=== PATIENT | female | born 1980 | race Caucasian/White ===

== ENCOUNTER 2019-01-26 11:25 | Outpatient (REF) | payer BC, SELFPAY ==
[2019-01-26 18:39] LABS: HCT 42.2 % (36.0-46.0); HGB 14.3 g/dL (12.0-15.5); Mean Corp. HGB Concentration 33.9 g/dL (32.0-36.0); Mean Corpuscular Hemoglobin 29.7 pg (27.0-33.0); Mean Corpuscular Volume 87.7 fL (80-95); Mean Platelet Volume 10.7 fL (8.0-11.0); Platelet Count 254 x1000/uL (130-400); RBC 4.81 m/cumm (4.00-5.20); RBC Distribution Width 13.2 % (11.7-14.6); White Blood Cell Count 12.94 k/cumm (4.4-10.8)
[2019-01-26 19:07] LABS: Anion Gap 10.1 mmol/L (3-11); BUN 11 mg/dL (7-18); CO2 24.9 mmol/L (21.0-32.0); CREATININE 0.59 mg/dL (0.55-1.02); Chloride 106 mmol/L (98-107); Glucose 92 mg/dL (70-100); Potassium 4.3 mmol/L (3.5-5.1); Sodium 141 mmol/L (136-145); TSH (W/Ref FT4) 3.25 uIU/mL (0.36-3.74)
[2019-01-26 19:22] LABS: Hemoglobin A1C 6.1 % (4.5-6.2)
== END 2019-01-26 11:45 ==
LOC: NCHCN 11:25
PROVIDERS: PCP Family Medicine; Visit Provider Family Medicine
DX: R53.83 Other fatigue (principal); E66.9 Obesity, unspecified
CPT/HCPCS: 80048; 85027; 83036; 84443

== ENCOUNTER 2020-03-04 10:00 | Outpatient (REF) | payer BC, SELFPAY ==
--- NOTE | 2020-03-04 08:45 | PAPFT_PTH ---
PATIENT: Henna Vallecillo LOC: [facility] U#:[id number] AGE/SX: 39/F ROOM: RE03/04/[address]: Kori Briceno NP : 1980 BED: DIS: 03/04/2020 SPEC #: [id number] RECD: 03/04/20 12:56 STATUS: BESSY REQ #: [id number] SHOAIB: 03/04/20 08:[address]: Kori Briceno NP DEPT: [facility] Cytology RECD BY: Sachi Brown ENTERED: 03/04/20 12:57 SP TYPE: PAPFT OTHR DR: Maria E Burns Tissues: 1 - CX/ENDOCX FOR PAP SMEARS Procedures: PAP THIN PREP/UVM Screening Comments: [phone] ([facility])
== END 2020-03-04 10:20 ==
LOC: LBN 10:00
PROVIDERS: PCP Family Medicine; Visit Provider Nurse Practitioner Women's Health
DX: Z12.4 Encounter for screening for malignant neoplasm of cervix (principal)
CPT/HCPCS: 88142

== ENCOUNTER 2021-01-29 13:04 | Outpatient (REF) | payer BC, SELFPAY ==
[2021-01-31 11:57] LABS: COVID-19 RT-PCR UVMMC Result Negative (Negative)
== END 2021-01-29 13:05 | disposition home or self-care (01) ==
LOC: LBN 13:04
PROVIDERS: PCP Family Medicine; Visit Provider Family Medicine
DX: Z20.822 Contact with and (suspected) exposure to COVID-19 (principal); J06.9 Acute upper respiratory infection, unspecified
CPT/HCPCS: U0003

== ENCOUNTER 2021-02-27 15:23 | Outpatient (REF) | payer BC, SELFPAY ==
[2021-02-27 21:30] LABS: Hemoglobin A1C 6.9 % (<5.7)
[2021-03-02 09:25] LABS: Hepatitis C Ab w Rflx HCV PCR Negative (Negative)
[2021-03-02 10:51] LABS: HIV-1/2 Ag & Ab Screen Negative (Negative)
== END 2021-02-27 15:24 | disposition home or self-care (01) ==
LOC: NCHCN 15:23
PROVIDERS: PCP Family Medicine; Visit Provider Family Medicine
DX: R73.03 Prediabetes (principal); Z11.4 Encounter for screening for human immunodeficiency virus [HIV]; Z00.00 Encounter for general adult medical examination without abnormal findings; Z11.59 Encounter for screening for other viral diseases
CPT/HCPCS: 86803; 87389; 83036

== ENCOUNTER 2023-05-10 11:27 | Outpatient (CLI) | payer OTHER, SELFPAY ==
[2023-05-10 09:32] LABS: Hemoglobin A1C 7.4 % (<5.7)
[2023-05-10 09:56] LABS: Calculated LDL 130 mg/dL (<100); Cholesterol 226 mg/dL (<200); HDL Cholesterol 49 mg/dL (40-60); Triglyceride 239 mg/dL (<150)
== END 2023-05-10 11:28 | disposition home or self-care (01) ==
LOC: LBO 11:27
PROVIDERS: PCP Family Medicine; Visit Provider Family Medicine
DX: Z13.220 Encounter for screening for lipoid disorders (principal); R73.03 Prediabetes
CPT/HCPCS: 36415; 80061; 83036

== ENCOUNTER 2023-05-27 15:48 | Outpatient (REF) | payer OTHER, SELFPAY ==
[2023-05-27 19:26] LABS: HCT 41.1 % (36.0-46.0); HGB 13.6 g/dL (11.2-15.7); MCH 28.3 pg (27.0-33.0); MCHC 33.1 % (32.0-36.0); MCV 85 fL (80-95); MPV 10.4 fL (8.0-11.0); Platelet Count 294 10^3/uL (130-400); RBC 4.81 10^6/uL (3.93-5.22); RDW 12.8 % (11.7-14.6); RDW-SD 39.8 fL; WBC 7.77 10^3/uL (4.4-10.8)
[2023-05-27 20:06] LABS: COMMENT (LAB VIEW ONLY) 152.89 mg/dL; Microalb ug/mg Crea 7.6 ug/mg Cr
[2023-05-27 20:24] LABS: ALT 29 U/L (14-59); AST 17 U/L (15-37); Albumin 4.2 g/dL (3.4-5.0); Alkaline Phosphatase 107 U/L (46-116); Anion Gap 13.1 mmol/L (3-11); BUN 11 mg/dL (7-18); Bilirubin, Total 0.4 mg/dL (0.2-1.0); CO2 23.9 mmol/L (21.0-32.0); CREATININE 0.7 mg/dL (0.55-1.02); Calcium 9.9 mg/dL (8.5-10.1); Chloride 102 mmol/L (98-107); Estimated GFR 112.05 (mL/min/1.73m2); Glucose 171 mg/dL (74-106); Sodium 139 mmol/L (136-145); TSH (W/Ref FT4) 6.91 uIU/mL (0.36-3.74); Total Protein 7.5 g/dL (6.4-8.2)
[2023-05-27 20:47] LABS: FREE T4 0.77 ng/dL (0.76-1.46)
== END 2023-05-27 15:49 | disposition home or self-care (01) ==
LOC: NCHCN 15:48
PROVIDERS: PCP Family Medicine; Visit Provider Family Medicine
DX: R53.83 Other fatigue (principal); E11.9 Type 2 diabetes mellitus without complications
CPT/HCPCS: 80053; 85027; 82043; 82570; 84439; 84443

== ENCOUNTER 2023-06-16 05:36 | Outpatient (CLI) | payer OTHER, SELFPAY ==
--- NOTE | 2023-06-17 13:44 | TELEFU_ITS ---
Date of service: 06/16/23 Time of Service: 11:00 Nutrition Note NOTE: Kateryna in for referred nutrition visit for diabetes education as well as weight mgt, as she has been struggling with her weight for some time. Although not on the current med list that originally came with the referral on 05/30/23, Henna states her Thyroid lab came back high, indicating underactive thyroid and has started thyroid medication. This will hopefully improve her success with weight mgt goal. She started Ozempic as well and administered her 2nd dose this Tuesday. Metformin ordered but she does not take this currently. PMH includes GERD, anxiety and gestational DM with 2 of her pregnancies and mu ltiple family members have diabetes. 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 She hopes this change will help her develop healthier habits as well. She weighs herself daily. We discussed and reveiwed CHO sources and 15gram serving size. Suggested 2 CHO choices at meals and 1 at snacks - Suggested 1-2 snacks per day along with meals and try to avoid grazing. We looked at meal planning as cornejo and setting up limited menus so she can avoid being overwhelmed with what am I gong to eat types of situations. We went over sample menus and stressed the protein component and fiber component at meals and snacks. We discussed how to find added sugar on labels and goal of <30g added sugar daily. I reviewed exercise (emphasizing strength training), sleep quality, and stress mgt as all vitally important in weight management efforts and diabetes mgt. she took my contact info to call or reach out with any questions. Time Spent in Nutritional Counseling and Treatment: 30 minutes
--- NOTE | 2023-06-21 11:21 | W.NUTRFU ---
Date of service: 06/16/23 Time of Service: 11:00 Nutrition Note Time Spent in Nutritional Counseling and Treatment: 45 minutes
== END 2023-06-16 05:37 | disposition home or self-care (01) ==
PROVIDERS: PCP Family Medicine; Visit Provider Dietitian, Registered
DX: E11.9 Type 2 diabetes mellitus without complications (principal); E66.8 Other obesity; Z71.3 Dietary counseling and surveillance
CPT/HCPCS: 123; 00123; G0108

== ENCOUNTER 2023-09-07 19:35 | Outpatient (REF) | payer OTHER, SELFPAY ==
[2023-09-07 16:23] LABS: Hemoglobin A1C 6.2 % (<5.7)
[2023-09-07 16:25] LABS: TSH (W/Ref FT4) 3.23 uIU/mL (0.36-3.74)
[2023-09-08 08:17] LABS: Thyroglobulin Antibody >500 U/mL (<=60); Thyroperoxidase Antibody >1300 U/mL (<=60)
== END 2023-09-07 19:36 | disposition home or self-care (01) ==
LOC: NCHCN 19:35
PROVIDERS: PCP Family Medicine; Visit Provider Family Medicine
DX: E11.9 Type 2 diabetes mellitus without complications (principal); E03.9 Hypothyroidism, unspecified
CPT/HCPCS: 86376; 83036; 84443

== ENCOUNTER 2023-12-09 08:45 | Outpatient (REF) | payer OTHER, SELFPAY ==
[2023-12-09 16:16] LABS: TSH (W/Ref FT4) 3.72 uIU/mL (0.36-3.74)
== END 2023-12-09 08:46 | disposition home or self-care (01) ==
LOC: NCHCN 08:45
PROVIDERS: PCP Family Medicine; Visit Provider Family Medicine
DX: E03.9 Hypothyroidism, unspecified (principal)
CPT/HCPCS: 84443

== ENCOUNTER 2023-12-28 01:54 | Outpatient (CLI) | payer OTHER, SELFPAY ==
--- NOTE | 2023-12-28 | DI.MAMMO_ITS ---
Exam(s) MAMMO SCREENING EXAM: MAMMO SCREENING CLINICAL HISTORY: SCREENING, Z12.39 TECHNIQUE: Mammograms were interpreted according to the usual protocol including computer analysis w [employer] CAD system, tomosynthesis and C-view imaging. COMPARISON: No exams were available for comparison. Baseline examination. FINDINGS: The breasts are composed of scattered fibroglandular densities, Breast Density category B. No suspicious masses or suspicious microcalcifications are seen. No skin thickening or abnormal axillary lymph nodes are seen. IMPRESSION: BI-RADS Category 1, Negative mammogram Yearly screening mammography is recommended. Breast Density - Category B, scattered fibroglandular densities. A negative radiographic report should not delay biopsy if a dominant or clinically suspicious mass is present. Up to ten percent of cancers are not identified on mammography. A negative report may reinforce clinical impression. Adenosis and dense breasts may obscure an underlying neoplasm. False positive reports average 6 to 10%. Patient will receive a letter notifying them of these results.
== END 2023-12-28 02:14 ==
PROVIDERS: PCP Family Medicine; Visit Provider Family Medicine
DX: Z12.31 Encounter for screening mammogram for malignant neoplasm of breast (principal)
CPT/HCPCS: 77063; 77067

== ENCOUNTER 2024-03-09 16:12 | Outpatient (REF) | payer OTHER, SELFPAY | END 2024-03-09 16:13 | disposition home or self-care (01) | LOC: NCHCN 16:12 | PROVIDERS: PCP Family Medicine; Visit Provider Family Medicine | DX: E03.9 Hypothyroidism, unspecified (principal) | CPT/HCPCS: 84443 ==

== ENCOUNTER 2024-09-03 18:26 | Outpatient (REF) | payer OTHER, SELFPAY ==
[2024-09-03 21:57] LABS: TSH (W/Ref FT4) 1.41 uIU/mL (0.36-3.74)
[2024-09-03 22:38] LABS: COMMENT (LAB VIEW ONLY) 30.18 mg/dL; Microalb ug/mg Crea 17.2 ug/mg Cr
== END 2024-09-03 18:27 | disposition home or self-care (01) ==
LOC: NCHCN 18:26
PROVIDERS: PCP Family Medicine; Visit Provider Family Medicine
DX: E11.9 Type 2 diabetes mellitus without complications (principal); E03.9 Hypothyroidism, unspecified
CPT/HCPCS: 82043; 82570; 84443

== ENCOUNTER 2025-01-18 18:43 | Outpatient (REF) | payer OTHER, SELFPAY ==
[2025-01-18 21:34] LABS: Calculated LDL 115 mg/dL (<100); Cholesterol 213 mg/dL (<200); HDL Cholesterol 50 mg/dL (>or=50); Triglyceride 243 mg/dL (<150)
[2025-01-18 22:42] LABS: Hemoglobin A1C 5.7 % (<5.7)
== END 2025-01-18 18:44 | disposition home or self-care (01) ==
LOC: NCHCN 18:43
PROVIDERS: PCP Family Medicine; Visit Provider Family Medicine
DX: E11.9 Type 2 diabetes mellitus without complications (principal); Z13.220 Encounter for screening for lipoid disorders
CPT/HCPCS: 80061; 83036

== ENCOUNTER 2025-01-29 02:16 | Outpatient (CLI) | payer OTHER, SELFPAY ==
--- NOTE | 2025-01-29 12:40 | DI.MAMMO_ITS ---
Exam(s) MAMMO SCREENING EXAM: MAMMO SCREENING CLINICAL HISTORY: SCREENING, Z12.31 TECHNIQUE: Mammograms were interpreted according to the usual protocol including computer analysis with CAD system, tomosynthesis and C-view imaging. COMPARISON: [facility] MAMMO SCREENING from 12/28/2023 FINDINGS: The breasts are composed of scattered fibroglandular densities, Breast Density category B. No suspicious masses or suspicious microcalcifications are seen. No skin thickening or abnormal axillary lymph nodes are seen. There has been no significant change from prior exams. IMPRESSION: BI-RADS Category 1, Negative mammogram Yearly screening mammography is recommended. Breast Density - Category B - There are scattered areas of fibroglandular density. Breast density Category C or D implies that the patient has dense breast tissue. Dense breast tissue can make it harder to find cancer on a mammogram. Dense breast tissue is also associated with an increased risk of breast cancer. This information about the result of the mammogram report was provided to the patient to raise their awareness. Use this report when you speak with the patient about their risks for breast cancer, which includes their family history. At that time, you may recommend additional screening tests (Ultrasound or MRI) as these tests may add significant information. A negative radiographic report should not delay biopsy if a dominant or clinically suspicious mass is present. Up to ten percent of cancers are not identified on mammography. A negative report may reinforce clinical impression. Adenosis and dense breasts may obscure an underlying neoplasm. False positive reports average 6 to 10%. Patient will receive a letter notifying them of these results.
== END 2025-01-29 02:36 ==
PROVIDERS: PCP Family Medicine; Visit Provider Family Medicine
DX: Z12.31 Encounter for screening mammogram for malignant neoplasm of breast (principal); R92.323 Mammographic fibroglandular density, bilateral breasts
CPT/HCPCS: 77063; 77067